=== PATIENT | male | born 1960 | race Caucasian/White ===

== ENCOUNTER 2018-07-25 01:14 | Inpatient (IN) | payer MEDICAID ==
[2018-07-25] MEDS ORDERED: NS 1,000 ML IV ONE (01:18)
--- NOTE | 2018-07-25 01:18 | EDPHY ---
H & P Time Seen by Provider: 07/25/18 01:18 HPI/ROS: HPI CHIEF COMPLAINT: Chest pain. HISTORY OF PRESENT ILLNESS: This is a 57-year-old male, denies any significant medical history, reports to me that he smokes marijuana regularly. He states over the last 2 days he has had chest discomfort. This evening around midnight his left-sided chest discomfort got worse. He states over the last 48 hr he has been having intermittent chest discomfort. Tonight it got worse. This prompted him to come to the emergency room. He describes the pain is left-sided radiates to his left shoulder down his left arm dull ache 03/04. Patient reports he has been under a large amount of stress. He was immediately brought back to ER room 12 where I saw and evaluated him. Patient immediately had an EKG. The patient's EKG time 1:25 a.m., sinus rhythm rate of 51, ST elevation in inferior leads to [address] depression aVL, lead 1, V1 V2 V3. Additionally V4 V5. This EKG is concerning for ST elevation PR. Past Medical History: Denies medical history Past Surgical History: Denies surgical Social History: Daily marijuana use. Family History: Denies ROS REVIEW OF SYSTEMS: 10 Systems were reviewed and negative with the exception of the elements mentioned in the history of present illness. Exam Constitutional triage nursing summary reviewed, vital signs reviewed, awake/ alert. Eyes normal conjunctivae and sclera, EOMI, PERRLA. HENT normal inspection, atraumatic, moist mucus membranes, no epistaxis, neck supple/ no meningismus, no raccoon eyes. Respiratory clear to auscultation bilaterally, normal breath sounds, no respiratory distress, no wheezing. Cardiovascular rate normal, regular rhythm, no murmur, no edema, distal pulses normal. Gastrointestinal soft, non-tender, no rebound, no guarding, normal bowel sounds, no distension, no pulsatile mass. Genitourinary no CVA tenderness. Musculoskeletal no midline vertebral tenderness, full range of motion, no calf swelling, no tenderness of extremities, no meningismus, good pulses, neurovascularly intact. Skin pink, warm, & dry, no rash, skin atraumatic. Neurologic awake, alert and oriented x 3, AAOx3, moves all 4 extremities equally, motor intact, sensory intact, CN II-XII intact, normal cerebellar, normal vision, normal speech. Psychiatric normal mood/affect. Heme/Lymph/Immune no lymphadenopathy. Differential diagnosis includes but is not limited to: ACS, atypical chest pain , pneumothorax, pneumonia, pulmonary embolism, aortic dissection, congestive heart failure, tumor, musculoskeletal pain, esophageal pain, GERD, peptic ulcer disease, pancreatitis Medical Decision Making: Plan for this patient cardiac alert will be activated as the patient has ST elevation PR on his EKG. Patient receive full-dose aspirin. 2 large-bore IVs will be placed. Cardiac monitoring. Check troponin. Activate laboratory coordinator. Will consult Interventional Cardiology for ST elevation PR. Will admit to the ICU. Patient to go to cardiac catheterization. Re-evaluation: Critical Care: Total Critical Care Time Spent Managing this Patient: 45 Minutes. This time was spent Exclusively with this patient. This Care was exclusive of procedures. The Organ System/life at risk was ST elevation PR. This Patient was in Critical Condition because ST elevation PR. Source: Patient Constitutional: Initial Vital Signs Temperature (C) 36.4 C 07/25/18 01:16 Heart Rate 78 07/25/18 01:16 Respiratory Rate 17 07/25/18 01:16 Blood Pressure 145/102 H 07/25/18 01:16 O2 Sat (%) 97 07/25/18 01:16 O2 Delivery Mode Room Air O2 (L/minute) 1 Allergies/Adverse Reactions: No Known Allergies Allergy (Unverified 07/25/18 01:29) Home Medications: Medication Instructions Recorded Aspirin [Aspirin 81mg (*)] 81 mg PO DAILY #30 tab.chew 07/25/18 Atorvastatin Calcium [Lipitor 20 20 mg PO DAILY #30 tab 07/25/18 mg (*)] Clopidogrel Bisulfate [Plavix (*)] 75 mg PO DAILY #30 tab 07/25/18 Metoprolol Tartrate [Lopressor 25 25 mg PO BID #60 tab 07/25/18 mg (*)] Medical Decision Making - Data Points Medications Given: Discontinued Medications Aspirin Buffered (Aspirin Ec) 325 mg PO EDNOW ONE Stop: 07/25/18 01:25 Last Admin: 07/25/18 01:36 Dose: 325 mg Aspirin Buffered (Aspirin Ec) 325 mg PO DAILY [facility] Stop: 01/21/19 08:59 Last Admin: 07/25/18 09:19 Dose: 325 mg Atorvastatin Calcium (Lipitor) 20 mg PO DAILY [facility] Stop: 01/21/19 08:59 Last Admin: 07/25/18 09:18 Dose: 20 mg Clopidogrel Bisulfate (Plavix) 600 mg PO ONCE ONE Stop: 07/25/18 03:16 Last Admin: 07/25/18 03:48 Dose: Not Given Sodium Chloride (Ns) 1,000 mls @ 0 mls/hr IV EDNOW ONE; Wide Open PRN Reason: Protocol Stop: 07/25/18 01:19 Last Admin: 07/25/18 01:36 Dose: 1,000 mls Sodium Chloride (Ns) 1,000 mls @ 100 mls/hr IV CONT [facility] Stop: 07/25/18 13:14 Last Admin: 07/25/18 04:22 Dose: 1,000 mls Metoprolol Tartrate (Lopressor) 25 mg PO BID [facility] Stop: 01/21/19 08:59 Last Admin: 07/25/18 09:18 Dose: 25 mg Morphine Sulfate (Morphine) 4 mg IVP EDNOW ONE Stop: 07/25/18 01:57 Last Admin: 07/25/18 01:59 Dose: 4 mg Nitroglycerin (Nitrostat) 0.4 mg SL EDNOW ONE Stop: 07/25/18 01:25 Last Admin: 07/25/18 01:51 Dose: 0.4 mg Departure - Departure Disposition: [facility] Inpatient Acute Clinical Impression: STEMI (ST elevation myocardial infarction) Qualifiers: Involved coronary artery: unspecified coronary artery Qualified Code(s): I21.3 - ST elevation (STEMI) myocardial infarction of unspecified site Condition: Critical
[2018-07-25] MEDS ORDERED: ASPIRIN EC 325 MG TAB PO ONE (01:24)
[2018-07-25] MEDS: NITROGLYCERIN 0.4 MG BTL SL ONE ×3 (01:36→01:51)
[2018-07-25 01:38] LABS: PLATELET COUNT 400 10^3/uL (150-400)
[2018-07-25 01:46] LABS: INR 0.96 (0.83-1.16)
[2018-07-25] MEDS ORDERED: fentaNYL 100 MCG/2 ML INJ ONE ×2 (02:03→02:54)
[2018-07-25] MEDS ORDERED: MIDAZOLAM 2 MG/2 ML VIAL ONE ×2 (02:03→02:48)
[2018-07-25] MEDS ORDERED: LIDOCAINE 1% 300 MG/30 ML SDV ONE (02:03)
[2018-07-25] MEDS ORDERED: IOPAMIDOL (ISOVUE-370) 150 ML BTL IV ONE (02:04)
[2018-07-25] MEDS ORDERED: VERAPAMIL 5 MG/2 ML VIAL ONE (02:28)
[2018-07-25] MEDS ORDERED: HEPARIN 10,000 UNIT/10 ML MDV (1,000 UNIT/ML) ONE (02:28)
--- NOTE | 2018-07-25 02:32 | PDGENHP ---
History & Physical Chief Complaint: Chest pain History of Present Illness: See dictated H&P. Chest pain for 2-3 days. Pertinent Past, Social, Family History: None Relevant Physical Exam: RRR; no murmur.
--- NOTE | 2018-07-25 02:33 | PDPROPOC ---
Sedation Plan of Care Sedation Plan of Care: vital signs stable, mental status noted, patient educated of risks, benefits, alternatives, patient can tolerate sedation ASA Classification: ASA 1 Planned drugs: fentanyl, midazolam Mallampati Score: Class 1 Mallampati Reference Image: Patient passed 3-3-2 rule?: No
--- NOTE | 2018-07-25 02:59 | GHP ---
DATE OF ADMISSION: 07/25/2018 REASON FOR ADMISSION: Possible acute coronary syndrome. HISTORY: The patient is a 57-year-old male with no prior cardiac history. He presents to the emerge ncy room with a complaint of chest pain over the past 2-3 days. There is radiation to the left arm. There are no associated symptoms such as nausea, diaphoresis, or shortness of breath. His chest dis comfort has not changed significantly with physical activity or position. In the emergency room, his ECG demonstrated significant ST-segment depressions. A cardiac alert was called. PAST MEDICAL HISTORY: He has no prior cardiac history. He does not have a history of hypertension, diabetes, or hyperlipidemia. However, it should be noted that he has not had any routine medical con tact. PAST SURGICAL HISTORY: None. FAMILY HISTORY: Noncontributory. SOCIAL HISTORY: He is single. He does not smoke or consume significant amounts of alcohol. 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 REVIEW OF SYSTEMS: Apart from the chest discomfort that prompted this hospital encounter, a 10-point review was negative. PHYSICAL EXAMINATION: VITAL SIGNS: Heart rate in the 60s with sinus rhythm on the monitor. Blood p ressure 141/85. GENERAL: This is a well developed, well nourished, middle-aged male who appears to be in moderate discomfort. HEAD AND NECK: No scleral icterus. Mucous membranes moist. Carotid pul ses 2+ without bruits. There is no JVD. CHEST: Lung alvarenga clear to auscultation. CARDIAC: Regul ar rate and rhythm with a normal S1 and S2. There is no murmur or gallop. ABDOMEN: Soft, nontender , nondistended, with normal bowel sounds. EXTREMITIES: 2+ pulses and no peripheral edema. An Paco test on the right wrist was normal at less than 5 seconds. ECG: His ECG demonstrates normal sinus rhythm. There are no Q-waves or conduction system disturbanc es. He has up to [address]-segment depression across the precordial leads. He has J-point elevatio n in lead 3 only. LABORATORY STUDIES: His sodium is 140 with potassium 4.2, BUN 14, and creatinine 1.1. His initial t roponin is normal at 0.02. His CBC demonstrates a white blood cell count of 24.35. Hemoglobin and h ematocrit are 16.2 and 50.1. Platelet count 400,000. IMPRESSION: This is a 57-year-old male with little in the way of past medical history largely due to his lack of routine health care. He does not have any obvious cardiovascular risk factors. He pres ents with 2-3 days of chest discomfort and has significant ST-segment depression. He has ongoing charlette st discomfort. He has been hemodynamically stable in the emergency room. PLAN: Preparations are underway to take the patient to the cardiac catheterization lab for angiograp hy to exclude a significant coronary stenosis. Further diagnostic and therapeutic decisions await th e outcome of that study. The patient will likely require a hospital stay of greater than 2 midnights to assess his current medical condition. /[id number]/MODL
[2018-07-25] MEDS ORDERED: METOPROLOL TARTRATE 5 MG/5 ML INJ ONE (03:04)
[2018-07-25] MEDS ORDERED: CLOPIDOGREL BISULFATE 75 MG TAB ONE (03:12)
[2018-07-25] MEDS ORDERED: CLOPIDOGREL BISULFATE 75 MG TAB PO ONE (03:15)
[2018-07-25] MEDS ORDERED: TEMAZEPAM 15 MG CAP PO PRN (03:15)
[2018-07-25] MEDS ORDERED: ONDANSETRON 4 MG/2 ML VIAL IVP PRN (03:15)
[2018-07-25] MEDS ORDERED: LORazepam 2 MG/ML INJ IVP PRN (03:15)
[2018-07-25] MEDS ORDERED: ATROPINE SULFATE 1 MG/10 ML SYR IVP PRN (03:15)
[2018-07-25] MEDS ORDERED: HYDROCODONE/APAP 5/325 TAB PO PRN (03:15)
[2018-07-25] MEDS ORDERED: ACETAMINOPHEN 325 MG TAB PO PRN (03:15)
[2018-07-25] MEDS ORDERED: NS 1,000 ML IV SCH (03:15)
--- NOTE | 2018-07-25 03:33 | PDDXCAT ---
Diagnostic Cath Note - . Date: 07/25/18 Hand Box Coverer: Daren Indication: other (Acute Inferior OH) - Procedure Access: right wrist Procedure: left heart catheterization, coronary angiography, left ventriculogram , other (PCI of the RCA) - Materials Left Heart Cath size: 6F Left Heart Cath materials: other (TIG and Pigtail) - Findings-Left Heart Catheterization LM: Normal. LAD: Mid-LAD 50%; otherwise minimal irregularities. LCX: Proximal circumflex 50%; otherwise minimal irregularities. RCA: Mid-RCA 100%. EDP: 28 mmHg LVEF: 55% Wall motion: Inferior hypokinesis. Complications: None Estimated blood loss: <50ml Closure method: TR Band Assessment: 1) Acute inferior OH. 2) CAD as described above. 3) Successful PCI of the RCA using a single drug-coated stent. 4) Ischemic cardiomyopathy with minimally reduced LV systolic function. Intervention: Based on the patient's clinical presentation and diagnostic angiography, the decision was made to perform PCI of the RCA. The patient received intravenous Angiomax. A 6 Sami Hockey Stick-I guide catheter was advanced to the RCA ostium. An Intuition guidewire was advanced to the distal RCA. Predilatation of the total occlusion in the mid-RCA was performed using a 3.0 x 12 mm Emerge balloon. A 4.0 x 20 mm Synergy stent was advanced into position and was deployed at high pressure. Final angiograms demonstrated 0% residual stenosis and TRESA-III flow. Patient Problems: Problems Problem Status Onset STEMI (ST elevation myocardial infarction) Acute
[2018-07-25] MEDS ORDERED: ASPIRIN EC 325 MG TAB PO SCH (09:00)
[2018-07-25] MEDS ORDERED: ATORVASTATIN CALCIUM 20 MG TAB PO SCH (09:00)
[2018-07-25] MEDS ORDERED: METOPROLOL TARTRATE 25 MG TAB PO SCH (09:00)
[2018-07-25 10:21] LABS: CREATINE KINASE 1327 IU/L (0-224)
--- NOTE | 2018-07-25 10:42 | PDMN ---
Medical Necessity Medical necessity: Pt meets IP criteria as of 07/25/2018 per and MCG M-230 ( Myocardial Infarction); est los > 2 mn for ongoing tx and management of inferior STEMI.
--- NOTE | 2018-07-25 11:21 | ASMTCASEMG ---
Living Arrangements What is your living Answers: Alone arrangement? Who do you live with? Type Of Residence What kind of residence do Answers: House you live in? Discharge Plan Comments Coordination Status Comments Notes: Patient is a 57yo single male with no prior cardiac hx who presents to the ED with complaints of chest pain over the past 2-3 days. Patient needed cardiac laborer aquatic life for left heart catheterization, coronary angiography, left ventriculogram. Patient had a stent placed. Cardiac rehab eval ordered. Patient will most likely d/c independent with outpatient follow up. Patient is worried about his dog who is home alone with no one to let him out. Patient's nurse will let us know if patient remains here today and we need to make arrangements for the dog. D/C plan TBD. CM will follow. Date Signed: 07/25/2018 11:20 AM Electronically Signed By:Pinky Holley LCSW
--- NOTE | 2018-07-25 12:43 | CPEKG ---
Test Reason : PRN Chest Pain Blood Pressure : / mmHG Vent. Rate : 049 BPM Atrial Rate : 049 BPM P-R Int : 116 ms QRS Dur : 107 ms QT Int : 466 ms P-R-T Axes : 011 023 -40 degrees QTc Int : 421 ms Sinus bradycardia Inferior infarct, age indeterminate Right ventricular conduction defect Significant T wave abnormality in the inferior leads. Consider ischemia. This is new since June 282017, 01:25. There is also slight ST elevation in the inferior leads as well as peaking of T waves. All of this suggests possible ischemia . Resolution of ST depression in the precordial leads since July 25, 2018, 01:25 Confirmed by Shankar Clarke ([id number]) on 07/25/2018 12:43:15 PM Referred By: Confirmed By:Shankar Clarke
--- NOTE | 2018-07-25 12:46 | CPEKG ---
Test Reason : OPEN Blood Pressure : / mmHG Vent. Rate : 055 BPM Atrial Rate : 056 BPM P-R Int : 119 ms QRS Dur : 098 ms QT Int : 445 ms P-R-T Axes : 023 -14 -09 degrees QTc Int : 426 ms Sinus rhythm Ventricular premature complex T abnormalities, inferior leads, But less pronounced compared to July 25, 2018, 04:18 Confirmed by Shankar Clarke ([id number]) on 07/25/2018 12:45:47 PM Referred By: Confirmed By:Shankar Clarke
[2018-07-25 14:20] VITALS: BP 121/71
--- NOTE | 2018-07-25 16:54 | ECHO ---
[email or web address] [address] [address] Main: [phone] Fax: Transthoracic Echocardiogram Name: IRENE GOODE MR#: [id number] Study Date: 07/25/2018 Study Time: 08:08 AM Date of : 1960 Age: 57 year(s) Height: 177.8 cm (70 in.) Weight: 86.18 kg (190 lb.) BSA: 2.04 m2 Gender: Male Examination: Echo Indication: inferior STEMI; PCI of RCA Image Quality: Adequate Contrast: Requested by: Subhash Mercedes BP: 112 mmHg/70 mmHg Heart Rate: Rhythm: Indication: inferior STEMI; PCI of RCA Procedure Staff Train Electronic Technician: Ileana Rodriguez [facility] Reading Physician: Subhash Mercedes MD Requesting Provider: Conclusions: Normal size left ventricle. Normal global systolic LV function. Basal inferior hypokinesis. The mitral valve leaflets appear redundant. There is mild bileaflet mitral valve prolapse. Mild to moderate mitral regurgitation. Trivial tricuspid valve regurgitation. Pulmonary artery pressure is not obtained due to inadequate TR jet. No pericardial effusion. Measurements: Chambers Valvular Assessment AV/MV Valvular Assessment TV/PV Normal Normal Normal Name Value Range Name Value Range Name Value Range Ao Camila (2D): 3.9 cm (1.4 cm-2.6 AV Vmax: 1.12 m/s (1 m/s-1.7 PV Vmax: 0.71 m/s (0.6 m/s-0.9 cm) m/s) m/s) IVSd (2D): 0.9 cm (0.6 cm-1.1 AV maxP mmHg ( - ) PV PGmax: 2 mmHg ( - ) cm) LVOT Vmax: 0.80 m/s (0.7 m/s-1.1 LVDd (2D): 5.0 cm (4.2 cm-5.9 m/s) cm) CARMELITA (Vmax): 2.7 cm2 ( - ) LVDs (2D): 3.5 cm (2.1 cm-4 MV E Vmax: 0.71 m/s ( - ) cm) MV A Vmax: 0.40 m/s ( - ) LVPWd (2D): 0.8 cm (0.6 cm-1 MV E/A: 1.78 ( - ) cm) LVOTd 2.2 cm 2.2 cm mm LVEF (BP): 57 % (>=55 %) RVDd(2D): 3.1 cm (1.9 cm-3.8 cmmm) Continued Measurements: Patient: IRENE GOODE Study Date: 07/25/2018 Page 1 of 2 08:08 AM Chambers Valvular Assessment AV/MV Name Value Name Value LADs: 3.4 cm MV DecTime: 303 m/s LADs Lon.8 cm MV E/E' Septal: 11.20 LA Area: 17.5 cm2 MV E/E' Lateral: 8.90 TAPSE: 2.0 cm RA Area: 12.8 cm2 Additional Vessels Name Value Ao Ascendin.4 cm Findings: Left Ventricle: Normal size left ventricle. No LV hypertrophy. Normal global systolic LV function. EF is 57 %. Basal inferior hypokinesis. Normal diastolic LV function. Right Ventricle: Normal size right ventricle. Normal RV function. Left Atrium: The left atrium is normal in size. Right Atrium: The right atrium is normal in size. Mitral Valve: The mitral valve leaflets appear redundant. There is mild bileaflet mitral valve prolapse.Mild to moderate mitral regurgitation. No mitral stenosis is present. Aortic Valve: The aortic valve is tri-leaflet and functions normally. There is no aortic valve regurgitation. No aortic valve stenosis is present. Tricuspid Valve: The tricuspid valve is normal in appearance and function. Trivial tricuspid valve regurgitation. Pulmonary artery pressure is not obtained due to inadequate TR jet. Pulmonic Valve: Pulmonary valve not well visualized. Trivial pulmonic valve regurgitation. Aorta: Normal size aortic root measuring 3.7 cm, measuring 3.9 cm. Normal size ascending aorta measuring 3.4 cm. IVC: Normal size and course of the IVC. Pericardium: No pericardial effusion. (No Signature Object) Patient: IRENE GOODE Study Date: 07/25/2018 Page 2 of 2 08:08 AM [id number]
--- NOTE | 2018-07-26 06:17 | CPEKG ---
Test Reason : OPEN Blood Pressure : / mmHG Vent. Rate : 051 BPM Atrial Rate : 051 BPM P-R Int : 098 ms QRS Dur : 099 ms QT Int : 435 ms P-R-T Axes : -15 065 084 degrees QTc Int : 401 ms Sinus rhythm Short SC interval Repol abnrm suggests ischemia, diffuse leads ST elevation, consider inferior injury Confirmed by Jorje Bryant ([id number]) on 07/26/2018 6:16:10 AM Referred By: Confirmed By:Jorje Bryant
--- NOTE | 2018-07-26 06:17 | GDS ---
HOSPITAL COURSE: Please refer to my dictated admission history and physical and my cardiac catheteri zation report. Briefly, the patient is a 57-year-old male with little in the way of a past medical h istory. He presented in the [facility] nurse hours on July [address]-segment leroy vation myocardial infarction. He was taken emergently to the cardiac labor arbitrator where he was found to have moderate disease of the le ft anterior descending and circumflex. He had a large, dominant RCA that demonstrated a 100% occlusi on in its midportion. He underwent PCI with placement of a 4.0 x 20 mm Synergy stent. The angiograp hic outcome was excellent. His left ventricular ejection fraction was approximately 55% with inferior hypokinesis. His chest pain and ECG changes resolved. He had a few short bursts of nonsustained ventricular tachy cardia. He was started on aspirin, clopidogrel, metoprolol, and atorvastatin. His lipid panel demon strated a total cholesterol of 163 with HDL 33, LDL 108, and triglycerides 109. A single set of post procedure cardiac enzymes was obtained. His CPK was 1327 with a CPK-MB of 92.5. His troponin was 24 .1. He was adamant that he could not remain in the hospital for an additional night stay. He has no [facility] friends or relatives who could go to his home to deal with his dog. [facility] medical advice. RECOMMENDATIONS AND DISPOSITION: The patient left the hospital against medical advice. He was given prescriptions for clopidogrel 75 mg daily, atorvastatin 20 mg daily, and metoprolol 25 mg twice augustina y. He should also take aspirin 81 mg daily. My office will contact him to arrange for a followup ap pointment. DISCHARGE DIAGNOSES: 1. Acute inferior myocardial infarction. 2. Coronary artery disease. 3. Successful percutaneous coronary intervention of the right coronary artery with placement of a si ngle drug-coated stent. /[id number]/MODL
[2018-07-26] MEDS ORDERED: CLOPIDOGREL BISULFATE 75 MG TAB PO SCH (09:00)
[2018-07-26] MEDS ORDERED: ASPIRIN 81 MG CHEWABLE TAB PO SCH (09:00)
== END 2018-07-25 14:23 | disposition left against medical advice (07) | DRG 167 ==
LOC: F2N 03:33
PROVIDERS: ADMIT Internal Medicine Interventional Cardiology; ATTEND Internal Medicine Interventional Cardiology
DX: I21.19 ST elevation (STEMI) myocardial infarction involving other coronary artery of inferior wall (principal); I25.10 Atherosclerotic heart disease of native coronary artery without angina pectoris
CPT/HCPCS: 84484-PO; 96374; C1725; C1769; C1874; C1887; C9606; J1644; J2250; J2270; J3010; Q9967